=== PATIENT | male | born 1980 | race Caucasian/White ===

== ENCOUNTER 2022-03-27 17:10 | Emergency (ER) | payer SELFPAY ==
[~2022-03-27] VITALS: Ht 172.7 cm; Wt 113.0 kg
[2022-03-27 17:14] VITALS: BP 117/77
[2022-03-27] MEDS ORDERED: ACETAMINOPHEN 325MG TABLET PO ONE (19:15)
[2022-03-27] MEDS ORDERED: TETANUS, DIPHTHERIA, PERTUSSIS VAC/PF 0.5ML (>10YR OLD) IM ONE (19:15)
[2022-03-27] MEDS ORDERED: TOPUD MT (19:32)
== END 2022-03-27 20:15 | disposition home or self-care (01) ==
LOC: ER 17:10
DX: T30.0 Burn of unspecified body region, unspecified degree (principal)
CPT/HCPCS: 99283